=== PATIENT | male | born 1950 | race Caucasian/White ===

== ENCOUNTER 2020-05-28 09:43 | Outpatient (CLI) | payer MEDICARE ==
--- NOTE | 2020-05-29 12:09 | Ultrasound Report ---
LIMITED ULTRASOUND OF RIGHT BREAST: 05/28/2020 CLINICAL: Palpable right breast lump(s). Comparison is made to exam dated: 05/28/2020 mammogram - [facility]. Color flow and real-time ultrasound of the right breast 8 o'clock, and retroareolar regions were perf ormed. Fitzpatrick scale images of the real-time examination were reviewed. There is a irregular area of fibroglandular tissue in the right breast central to the nipple in the r etroareolar region. This correlates as palpated, to the reported pain, and with mammography findings . Color flow imaging demonstrates that there is no increase in vascularity. No mass lesion. IMPRESSION: BENIGN There is no sonographic evidence of malignancy. Right breast benign gynecomastia corresponding to the palpable abnormality. Exam findings were conveyed to the patient. Patient is advised to monitor for significant change. Clinical follow-up is recommended. This exam was interpreted at Station ID: [id number]. Electronically Signed By: Preston Tucker M.D. slc/:05/28/2020 12:53:45 Ultrasound BI-RADS: 2 Benign BI-RADS CATEGORY: (2) - 2 Unspecified - other recall n/a LATERALITY: (B)
--- NOTE | 2020-05-29 12:09 | Mammography Report ---
MALE BILATERAL DIGITAL DIAGNOSTIC MAMMOGRAM 3D/2D: 05/28/2020 CLINICAL: Baseline exam. Occasional right breast pain and lump. No prior exams were available for comparison. There is an irregular area of fibroglandular tissue in the right breast central to the nipple in the retroareolar region. This correlates as palpated and to the area of reported pain. No other significant masses, calcifications, or other findings are seen in either breast. IMPRESSION: INCOMPLETE: NEEDS ADDITIONAL IMAGING EVALUATION The irregular area of fibroglandular tissue in the right breast is most compatible with gynecomastia. A targeted ultrasound is recommended to exclude mass and will immediately follow. This exam was interpreted at Station ID: [id number]. NOTE: For mammograms, a report in lay terms will be sent to the patient. Approximately 15% of breast malignancies will not be visualized mammographically. In the management of a palpable breast mass, a negative mammogram must not discourage biopsy of a clinically suspicious lesion. Electronically Signed By: Preston Tucker M.D. slc/:05/28/2020 12:50:21 ACR BI-RADS Category 0: Incomplete 3340F PARENCHYMAL PATTERN: (F) - The breast(s) demonstrate(s) diffuse fatty replacement. BI-RADS CATEGORY: (0) - 0 Ultrasound [id number] Immediate follow-up LATERALITY: (B)
== END 2020-05-28 09:44 | disposition home or self-care (01) ==
LOC: DI 09:43
PROVIDERS: ATTEND Internal Medicine
DX: N62 Hypertrophy of breast (principal)

== ENCOUNTER 2022-07-16 07:58 | Day surgery (SDC) | payer MEDICARE ==
[2022-07-16] MEDS ORDERED: LACTATED RINGERS 1,000 ML IV ONE (08:11)
[2022-07-16] MEDS ORDERED: PROPOFOL 500 MG/50 ML 500 MG/50 ML VIAL ONE (09:33)
--- NOTE | 2022-07-16 09:47 | ANESTHESIA ---
Pre-Anesthesia VS, & Labs - Diagnosis pos cologuard - Procedure colonoscopy Vital Signs: Temp Pulse Resp BP Pulse Ox O2 Flow Rate 36.3 C L 67 17 153/82 H 98 07/16/22 08:06 07/16/22 08:06 07/16/22 08:06 07/16/22 08:06 07/16/22 08:06 Height: 5 ft 10 in Weight (kg): 92.5 kg Body Mass Index: 29.2 BMI Classification: Overweight - NPO >8 hours - Lab Results Current Lab Results: Laboratory Tests 07/16/22 08:22: POC Whole Bld Glucose 131 H Home Medications and Allergies Home Medications: Ambulatory Orders Atorvastatin Calcium 20 mg PO DAILY 07/16/22 Metformin HCl [Metformin ER Gastric] 500 mg PO DAILY 07/16/22 Sildenafil Citrate 0.5 - 1 tab PO PRN PRN 07/16/22 Atorvastatin Calcium 20 mg PO DAILY 07/16/22 Metformin HCl [Metformin ER Gastric] 500 mg PO DAILY 07/16/22 Sildenafil Citrate 0.5 - 1 tab PO PRN PRN 07/16/22 Allergies/Adverse Reactions: Allergies Allergy/AdvReac Type Severity Reaction Status Date / Time No Known Drug Allergies Allergy Verified 07/16/22 08:22 Anes History & Medical History - Anesthetic History Anesthesia Complications: reports: No previous complications Family history of Anesthesia Complications: Denies Family history of Malignant Hyperthermia: Denies - Medical History Cardiovascular: reports: High cholesterol Pulmonary: reports: Sleep apnea Gastrointestinal: reports: Colon polyps, Hepatitis Urinary: reports: Kidney stones Musculoskeletal: reports: None Endocrine/Autoimmune: reports: Type 2 diabetes Skin: reports: None Psychosocial: reports: Alcohol (10-14 drinks/week) - Surgical History General: reports: Colonoscopy Orthopedic: reports: Rotator cuff repair, Arthroscopic surgery Exam General: Alert, Oriented x3, Cooperative Dental: WNL Mouth Openin Fingerbreadth Neck Mobility: Normal Mallampati classification: II Thyromental Distance: 4-6 cm Respiratory: Lungs clear Cardiovascular: Regular rate Plan Anesthesia Type: General, Total IV Consent for Procedure(s) Verified and Reviewed: Yes Code Status: Attempt Resuscitation ASA classification: 3-Severe systemic disease Is this case an emergency?: No
[2022-07-16] MEDS ORDERED: LACTATED RINGERS 150 ML IV ONE (10:01)
[2022-07-16 10:19] VITALS: BP 125/86
--- NOTE | 2022-07-16 14:53 | ANESTHESIA POST OP EVALUATION ---
Anesthesia Post Eval - Post Anesthesia Eval Vitals: Last Vital Signs Temp 36.2 C L 07/16/22 10:18 Pulse 67 07/16/22 10:18 Resp 17 07/16/22 10:18 BP 125/86 H 07/16/22 10:18 Pulse Ox 98 07/16/22 10:18 O2 Flow Rate CV Function Including HR & BP: Stable Pain Control: Satisfactory Nausea & Vomiting: Negative Mental Status: Baseline Respiratory Status: Airway Patent Hydration Status: Satisfactory Anesthesia Complications: None
== END 2022-07-16 07:59 | disposition home or self-care (01) ==
LOC: SDS 07:58
PROVIDERS: ATTEND Surgery
PROC: 0DBN8ZZ Excision of Sigmoid Colon, Via Natural or Artificial Opening Endoscopic (ICD-10-PCS; principal; 2022-07-16 09:15)
DX: Z12.11 Encounter for screening for malignant neoplasm of colon (principal); R19.5 Other fecal abnormalities; D12.5 Benign neoplasm of sigmoid colon; K64.1 Second degree hemorrhoids; E11.9 Type 2 diabetes mellitus without complications; Z79.84 Long term (current) use of oral hypoglycemic drugs; Z87.891 Personal history of nicotine dependence
CPT/HCPCS: 45385; J7120